=== PATIENT | male | born 1975 | race Two or more races ===

== ENCOUNTER 2018-09-07 16:35 | Emergency (ER) | payer SELFPAY ==
[~2018-09-07] VITALS: Ht 170.2 cm; Wt 91.0 kg
[2018-09-07] MEDS ORDERED: IBUP-1653 PO (16:53)
[2018-09-07 22:21] VITALS: BP 109/70
== END 2018-09-07 22:21 | disposition home or self-care (01) ==
LOC: ER 16:35
DX: S30.0XXA Contusion of lower back and pelvis, initial encounter (principal); S09.90XA Unspecified injury of head, initial encounter; Z79.899 Other long term (current) drug therapy; W18.39XA Other fall on same level, initial encounter; Y93.89 Activity, other specified; Y92.89 Other specified places as the place of occurrence of the external cause; Y99.8 Other external cause status
CPT/HCPCS: 99284